=== PATIENT | male | born 1960 | race Caucasian/White ===

== ENCOUNTER 2019-08-18 10:12 | Emergency (ER) | payer OTHER ==
[~2019-08-18] VITALS: Ht 177.8 cm; Wt 97.5 kg
[2019-08-18] MEDS ORDERED: PENICILLIN V P500 MG PO (10:54)
--- OUTSIDE RECORDS SUMMARY | 2019-08-18 11:30 | XMS ---
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 EUrsula VISIT COUNT (12 MO.) 1 [facility] TOTAL 1 NOTE: Visits indicate total known visits. ED/UCC VISIT TRACKING (12 MO.) 08/18/2019 10:13 [facility] [place] TYPE: Emergency COMPLAINT: - DENTAL PAIN INPATIENT VISIT TRACKING (12 MO.) No inpatient visits to display in this time frame [email or web address]
[2019-08-18] MEDS ORDERED: OXYCODONE HCL5 MG PO (14:00)
== END 2019-08-18 11:00 | disposition home or self-care (01) ==
LOC: ED 10:12
DX: K04.7 Periapical abscess without sinus (principal); I10 Essential (primary) hypertension; J44.9 Chronic obstructive pulmonary disease, unspecified; I25.2 Old myocardial infarction; F17.200 Nicotine dependence, unspecified, uncomplicated
CPT/HCPCS: 99282

== ENCOUNTER 2020-02-14 17:58 | Emergency (ER) | payer OTHER ==
[~2020-02-14] VITALS: Ht 177.8 cm; Wt 97.5 kg
[~2020-02-14 17:58] MED LIST: OXYCODONE HCL5 MG PO; PENICILLIN V P500 MG PO
--- OUTSIDE RECORDS SUMMARY | 2020-02-14 18:02 | XMS ---
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 Juliet VISIT COUNT (12 MO.) 2 LUCIA Reynaga TOTAL 2 NOTE: Visits indicate total known visits. ED/UCC VISIT TRACKING (12 MO.) 02/14/2020 17:59 [facility] [place] TYPE: Emergency COMPLAINT: - SEIZURE 08/18/2019 10:13 [facility] [place] TYPE: Emergency COMPLAINT: - DENTAL PAIN DIAGNOSES: - Periapical abscess without sinus - Chronic obstructive pulmonary disease, unspecified - Nicotine dependence, unspecified, uncomplicated - Essential (primary) hypertension - Other specified disorders of teeth and supporting structures - Old myocardial infarction INPATIENT VISIT TRACKING (12 MO.) No inpatient visits to display in this time frame [email or web address]
== END 2020-02-14 19:42 | disposition home or self-care (01) ==
LOC: ED 17:58
DX: G40.909 Epilepsy, unspecified, not intractable, without status epilepticus (principal); I10 Essential (primary) hypertension; F17.200 Nicotine dependence, unspecified, uncomplicated
CPT/HCPCS: 70450; 80053; 80185; 81001; 85025; 99284-25; J7030

== ENCOUNTER 2020-02-20 07:35 | Emergency (ER) | payer OTHER ==
[~2020-02-20] VITALS: Ht 177.8 cm; Wt 97.5 kg
--- OUTSIDE RECORDS SUMMARY | 2020-02-20 07:38 | XMS ---
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 Juliet VISIT COUNT (12 MO.) [address] [place] [address] TOTAL 3 NOTE: Visits indicate total known visits. ED/UCC VISIT TRACKING (12 MO.) 02/20/2020 07:[address] [facility] [place] TYPE: Emergency COMPLAINT: - FOREIGN OBJECT IN EAR 02/14/2020 17:59 [facility] [place] TYPE: Emergency COMPLAINT: - SEIZURE DIAGNOSES: - Epilepsy, unspecified, not intractable, without status epilep - Essential (primary) hypertension - Nicotine dependence, unspecified, uncomplicated - Unspecified convulsions 08/18/2019 10:[address] [facility] [place] TYPE: Emergency COMPLAINT: - DENTAL PAIN DIAGNOSES: - Periapical abscess without sinus - Chronic obstructive pulmonary disease, unspecified - Nicotine dependence, unspecified, uncomplicated - Essential (primary) hypertension - Other specified disorders of teeth and supporting structures - Old myocardial infarction INPATIENT VISIT TRACKING (12 MO.) No inpatient visits to display in this time frame [email or web address]
== END 2020-02-20 08:04 | disposition home or self-care (01) ==
LOC: ED 07:35
DX: T16.9XXA Foreign body in ear, unspecified ear, initial encounter (principal)

== ENCOUNTER 2022-01-01 20:21 | Emergency (ER) | payer OTHER ==
[~2022-01-01] VITALS: Ht 177.8 cm; Wt 102.1 kg
--- OUTSIDE RECORDS SUMMARY | 2022-01-01 20:24 | XMS ---
PreManage Notification: JOSUE GALDAMEZ Security [employer] Events 1 event(s) in the past 18 months Most recent security events: Elopement at [facility] 01/28/2021 14:19 - Other Details: PAT[facility] LWBS. [facility] MAINE DE LA CRUZ Physician 08/19/2019-Current PHONE: Unknown Bridgette has no Care Guidelines for this patient. E.D. VISIT COUNT (12 MO.) 2 [facility]. TOTAL 2 NOTE: Visits indicate total known visits. ED/UCC VISIT TRACKING (12 MO.) 01/01/2022 20:22 [facility] [place] TYPE: Emergency COMPLAINT: - POSS SEIZURE 01/28/2021 14:19 [facility] [place] TYPE: Emergency COMPLAINT: - FALL INPATIENT VISIT TRACKING (12 MO.) No inpatient visits to display in this time frame [email or web address]
[2022-01-01] MEDS ORDERED: OXYCODONE HCL5 MG PO (20:33)
[2022-01-01] MEDS ORDERED: TIZANIDINE HCL4 MG PO (20:34)
[2022-01-01] MEDS ORDERED: VALSARTAN160 MG PO (20:34)
[2022-01-01] MEDS ORDERED: LOSARTAN POTAS100 MG PO (20:34)
[2022-01-01] MEDS ORDERED: NORTRIPTYLINE H25 MG PO (20:34)
[2022-01-01] MEDS ORDERED: NITROGLYCERIN0.4 MG SL (20:34)
[2022-01-01] MEDS ORDERED: FLOVENT HFA12 GM INH (20:35)
[2022-01-01] MEDS ORDERED: VENTOLIN HFA18 GM INH (20:35)
--- NOTE | 2022-01-03 13:38 | EKG ---
[facility] [address] [facility] [place] [address] Signed Sinus tachycardia Possible Inferior infarct , age undetermined Anterior infarct , age undetermined Abnormal ECG No previous ECGs available Confirmed by VILMA POWELL MD ([id number]) on 01/03/2022 1:38:50 PM Electronically Signed By: VILMA POWELL MD 01/03/22 1338 PATIENT NAME: JOSUE GALDAMEZ Electrocardiogram DATE OF : 56 PHYSICIAN: VILMA POWELL MD REPORT #: [id number] REPORT IS CONFIDENTIAL AND NOT TO BE RELEASED WITHOUT AUTHORIZATION
--- NOTE | 2022-01-03 13:39 | EKG ---
[facility] [address] [facility] [place] [address] Signed Normal sinus rhythm Normal ECG When compared with ECG of 01-JAN-2022 20:41, (Unconfirmed) Criteria for Anterior infarct are no longer present No significant change was found Confirmed by VILMA POWELL MD ([id number]) on 01/03/2022 1:38:57 PM Electronically Signed By: VILMA POWELL MD 01/03/22 1339 PATIENT NAME: JOSUE GALDAMEZ Electrocardiogram DATE OF : 56 PHYSICIAN: VILMA POWELL MD REPORT #: [id number] REPORT IS CONFIDENTIAL AND NOT TO BE RELEASED WITHOUT AUTHORIZATION
== END 2022-01-02 00:03 | disposition home or self-care (01) ==
LOC: ED 20:21
DX: G40.909 Epilepsy, unspecified, not intractable, without status epilepticus (principal); R07.9 Chest pain, unspecified; I10 Essential (primary) hypertension; J44.9 Chronic obstructive pulmonary disease, unspecified; I25.2 Old myocardial infarction; F17.200 Nicotine dependence, unspecified, uncomplicated; Z79.899 Other long term (current) drug therapy
CPT/HCPCS: 36415; 70450; 71045; 80053; 80185; 84484; 85025; 93005; 93010; 96365; 96375; 99285-25; G0480; J1170; J2405; Q2009